=== PATIENT | female | born 1980 | race Caucasian/White ===

== ENCOUNTER 2020-08-19 15:55 | Emergency (ER) | payer OTHER ==
[2020-08-19 16:15] VITALS: BP 138/63; PULSE 91; TEMP 97.5; BMI 34.4
== END 2020-08-19 19:02 | disposition home or self-care (01) ==
LOC: JERFT 15:55
DX: S42.345A Nondisplaced spiral fracture of shaft of humerus, left arm, initial encounter for closed fracture (principal)
CPT/HCPCS: 73030-TC-LT-FY; 73060-TC-LT-FY; 99285-25